=== PATIENT | female | born 1950 | race American Indian/Alaskan Native ===

== ENCOUNTER 2018-03-06 17:31 | Observation (INO) | payer OTHER, MEDICARE ==
--- NOTE | 2018-03-06 17:55 | C.PDOC ---
History Of Present Illness 67 year old female presents to the ED after being sent by her PMD for evaluation of asymptomatic bradycardia noted prior to arrival. Patient went to her PMD's office today for a routine visit when she was found to have a heart rate of 37 bpm. Patient refused ambulance and waited to be brought to the ED by her niece. Patient reports similar episode of bradycardia in the past, and states her heart rate improved after Dr. Magallanes adjusted her medications. Upon ED arrival, patient's heart rate improved to around 50bpm. She denies chest pain, shortness of breath, lightheadedness, and dizziness at this time. PMD: Dr. Purnima Nelson Time Seen by Provider: 03/06/18 17:51 Chief Complaint (Nursing): Shortness Of Breath History Per: Patient History/Exam Limitations: no limitations Onset/Duration Of Symptoms: Hrs Current Symptoms Are (Timing): Better Quality: denies: "Pain" Current Respiratory Medications: See Home Med List Associated Symptoms: denies: Chest Pain Additional History Per: Patient Past Medical History Reviewed: Historical Data, Nursing Documentation, Vital Signs Vital Signs: Last Vital Signs Temp 98.3 F 03/06/18 17:34 Pulse 50 L 03/06/18 18:31 Resp 18 03/06/18 18:31 BP 166/85 H 03/06/18 18:31 Pulse Ox 97 03/06/18 18:05 - Medical History PMH: Asthma, COPD, HTN, Hypercholesterolemia Surgical History: No Surg Hx Family History: States: Unknown Family Hx - Social History Hx Alcohol Use: No Hx Substance Use: No - Immunization History Hx Tetanus Toxoid Vaccination: No Hx Influenza Vaccination: No Hx Pneumococcal Vaccination: No Review Of Systems Cardiovascular: Positive for: Other (asymptomatic bradycardia ). Negative for: Chest Pain Respiratory: Negative for: Shortness of Breath Neurological: Negative for: Dizziness, Other (lightheadedness ) Physical Exam - Physical Exam Appears: Non-toxic, No Acute Distress Skin: Normal Color, Warm, Dry Head: Atraumatic, Normacephalic Eye(s): bilateral: Normal Inspection Oral Mucosa: Moist Neck: Supple Chest: Symmetrical, No Deformity, No Tenderness Cardiovascular: Rhythm Regular, No Murmur Respiratory: Normal Breath Sounds, No Rales, No Rhonchi, No Wheezing Extremity: Normal ROM, Capillary Refill (less than 2 seconds ) Neurological/Psych: Oriented x3, Normal Speech, Normal Cognition ED Course And Treatment - Laboratory Results Result Diagrams: 03/06/18 18:11 03/06/18 18:11 Lab Interpretation: No Acute Changes ECG: Interpreted By Me ECG Rhythm: Sinus Bradycardia, ST/T Changes (inversion I AVL ) ECG Interpretation: Abnormal O2 Sat by Pulse Oximetry: 97 (on RA) Pulse Ox Interpretation: Normal - Radiology CXR: Viewed By Me, Read By Radiologist CXR Interpretation: Yes: No Acute Disease Progress Note: Bloodwork, CXR, EKG ordered and reviewed. Reevaluation Time: 19:20 Reassessment Condition: Unchanged (Currently has diffuse wheezing on lung exam. Duoneb ordered.) - Physician Consult Information Time Consulting Physician Contacted: 19:21 Physician Contacted: Pal Dozier Outcome Of Conversation: Patient to be admitted for bradycardia. Disposition - Disposition Disposition: HOSPITALIZED Disposition Time: 19:22 Condition: STABLE - POA Present On Arrival: None - Clinical Impression Clinical Impression: Bradycardia by electrocardiogram, Bradycardia with 31-40 beats per minute - Scribe Statement The provider has reviewed the documentation as recorded by the Scribe (Stacy Roldan) Provider Attestation: All medical record entries made by the Scribe were at my direction and personally dictated by me. I have reviewed the chart and agree that the record accurately reflects my personal performance of the history, physical exam, medical decision making, and the department course for this patient. I have also personally directed, reviewed, and agree with the discharge instructions and disposition.
[2018-03-06 18:28] LABS: BASO % 0.6 % (0.0-2.0); EOS # 0.2 K/uL (0.0-0.7); EOS % 5.3 % (0.0-4.0); LYMPH # 1.5 K/uL (1.0-4.3); LYMPH % 32.4 % (20.0-40.0); MEAN CELL VOLUME 90.8 fL (81.0-99.0); MEAN CORPUSCULAR HEMOGLOBIN 30.2 pg (27.0-31.0); MEAN CORPUSCULAR HGB CONC 33.3 g/dL (33.0-37.0); MEAN PLATELET VOLUME 8.9 fL (7.2-11.7); MONO # 0.3 K/uL (0.0-0.8); MONO % 6.6 % (0.0-10.0); NEUT # 2.5 K/uL (1.8-7.0); NEUT % 55.1 % (50.0-75.0); NRBC % 0.1 % (0.0-2.0); RBC 4.31 Mil/uL (3.80-5.20); RED CELL DISTRIBUTION WIDTH 16.3 % (11.5-14.5); WHITE BLOOD COUNT 4.6 K/uL (4.8-10.8)
[2018-03-06 18:32] LABS: ALB/GLOB RATIO 1.2 (1.0-2.1); ALBUMIN 3.9 g/dL (3.5-5.0); ALT/SGPT 13 U/L (9-52); AST/SGOT 21 U/L (14-36); BLOOD UREA NITROGEN 18 mg/dL (7-17); CALCIUM 8.6 mg/dl (8.6-10.4); GFR AFRICAN-AMERICAN > 60; GFR NON-AFRICAN AMERICAN > 60
[2018-03-06 19:10] LABS: B-TYPE NATRIURETIC PEPTIDE 194 pg/mL (0-900)
--- NOTE | 2018-03-06 19:15 | RAD ---
PROCEDURE: CHEST RADIOGRAPH, 1 VIEW HISTORY: SOB COMPARISON: Chest radiographs 01/06/2016. FINDINGS: LUNGS: No definite pulmonary disease appreciated bilaterally. PLEURA: No pneumothorax or pleural fluid seen. CARDIOVASCULAR: Cardiomegaly. No pulmonary vascular derangement. OSSEOUS STRUCTURES: No significant abnormalities. VISUALIZED UPPER ABDOMEN: Normal. OTHER FINDINGS: None. IMPRESSION: Cardiomegaly. No pulmonary derangement. No acute pulmonary disease bilaterally.
[2018-03-06] MEDS ORDERED: Albuterol-Ipratrop 3 mg / 0.5 (3 ml) UD IH STA (19:23)
[2018-03-06] MEDS ORDERED: Albuterol-Ipratrop 3 mg / 0.5 (3 ml) UD ONE (19:38)
[2018-03-06 20:43] LABS: SQUAMOUS EPITHIAL 10 /hpf (0-5); URINE BACTERIA OCC (<OCC); URINE BILIRUBIN NEGATIVE (NEGATIVE); URINE BLOOD NEGATIVE (NEGATIVE); URINE CLARITY Hazy (Clear); URINE COLOR Yellow (YELLOW); URINE GLUCOSE (UA) NORMAL (Normal); URINE LEUKOCYTE ESTERASE 1+ Leu/uL (Negative); URINE PROTEIN NEGATIVE (NEGATIVE); URINE UROBILINOGEN NORMAL mg/dL (0.2-1.0)
[2018-03-06] MEDS: Albuterol-Ipratrop 3 mg / 0.5 (3 ml) UD INH SCH (20:48)
[2018-03-06] MEDS ORDERED: Rosuvastatin Calcium 2.5 mg Tab PO SCH (22:00)
[2018-03-06] MEDS: Rosuvastatin Calcium 2.5 mg Tab PO SCH (22:43)
[2018-03-07 01:21] LABS: CK-MB 1.04 ng/mL (0.0-3.38)
--- NOTE | 2018-03-07 02:00 | CP.PCM.HP ---
<Poncho Saravia - Last Filed: 03/07/18 04:32> History of Present Illness - History of Present Illness History of Present Illness: This is a 67 yo female with past medical hx of HTN, COPD, HLD, bradycardia, osteoarthritis, presenting to [facility] ER with chief complaint of "my primary care doctor told me to come here." Pt was going to see her pmd Dr. Nelson at a regularly scheduled visit today. She was seeing Dr. Nelson at [address] Nelson performed an ekg and informed her that her heart rate was in the 30s. She says she felt perfectly fine at this time and denies any symptoms whatsoever. Denied chest pain, palpitations, dizziness, lightheaded, vertigo, syncope. Dr. Nelson said she would call an ambulance for her. The pt refused the ambulance and instead said her niece would come pick her up and transport her to the ER. The pt was then transported to ER by her niece. She still denies any sx currently. She denies chest pain, palpitations, fevers, chills, syncope, vomiting, diarrhea. She says this type of situation has happened before. She has been seeing Dr. Magallanes. She does report shortness of breath when walking up only 1 flight of stairs. She also reports feeling short of breath after traveling only 1 block. She says this has been going on for 1 year. She denies any shortness of breath at rest. PMD: Dr. Nelson- brady saw earlier today Specialists: Cardiology- Sona PMH: HTN, COPD, HLD, bradycardia, osteoarthritis PSH: bilateral cyst removal from breasts, surgery on right wrist Allergies: NKDA FH: mother- heart disease father- stroke Also DM and unknown cancer in family Social hx: Current smoker. Says 1 cigarette every once in a while. For 40 yrs at least. Denies drinking. Denies drug use. Works as a [employer]. Lives alone. Born in . Home meds: tramadol 50 mg po tid, celecoxib 200 mg po daily, asa 81 mg po daily , lasix 20 mg po daily, diovan 320 mg po daily, allopurinol 100 mg po daily, pravastatin 20 mg po daily, Insurance: [employer] medicare Code status: patient is thinking carefully about her wishes Present on Admission - Present on Admission Any Indicators Present on Admission: No History of DVT/PE: No History of Uncontrolled Diabetes: No Urinary Catheter: No Decubitus Ulcer Present: No Review of Systems - Constitutional Constitutional: absent: Chills, Fever - EENT Eyes: absent: Blurred Vision, Change in Vision Nose/Mouth/Throat: absent: Sore Throat, Neck Pain - Cardiovascular Cardiovascular: Dyspnea. absent: Chest Pain, Chest Pain at Rest - Respiratory Respiratory: Dyspnea, Dyspnea on Exertion. absent: Cough - Gastrointestinal Gastrointestinal: absent: Abdominal Pain, Nausea, Vomiting - Genitourinary Genitourinary: absent: Change in Urinary Stream, Difficulty Urinating - Musculoskeletal Musculoskeletal: absent: Neck Pain, Numbness, Tingling - Integumentary Integumentary: absent: Bleeding Lesions, Changing Lesions - Neurological Neurological: absent: Syncope, Weakness - Psychiatric Psychiatric: absent: Hallucinations, Visual Hallucinations - Endocrine Endocrine: absent: Palpitations, Polyuria - Hematologic/Lymphatic Hematologic: absent: Easy Bleeding, Easy Bruising Past Patient History - Infectious Disease Hx of Infectious Diseases: None - Tetanus Immunizations Tetanus Immunization: Unknown - Past Medical History & Family History Past Medical History?: Yes - Past Social History Smoking Status: Light Smoker < 10 Cigarettes Daily Chewing Tobacco Use: No Cigar Use: No Alcohol: None Drugs: Denies Home Situation {Lives}: Alone Domestic Violence: Negative - CARDIAC Hx Hypercholesterolemia: Yes Hx Hypertension: Yes - PULMONARY Hx Asthma: Yes Hx Chronic Obstructive Pulmonary Disease (COPD): Yes - MUSCULOSKELETAL/RHEUMATOLOGICAL Hx Osteoarthritis: Yes - PSYCHIATRIC Hx Substance Use: No - SURGICAL HISTORY Other/Comment: Breast cyst removed ,benign, carpal tunnel sx - ANESTHESIA Hx Anesthesia: No Hx Anesthesia Reactions: No Meds Allergies/Adverse Reactions: Allergies Allergy/AdvReac Type Severity Reaction Status Date / Time No Known Allergies Allergy Unverified 03/06/18 17:35 Physical Exam - Constitutional Appears: Non-toxic, No Acute Distress - Head Exam Head Exam: ATRAUMATIC, NORMAL INSPECTION, NORMOCEPHALIC - Eye Exam Eye Exam: EOMI - ENT Exam ENT Exam: Mucous Membranes Moist - Neck Exam Neck exam: Positive for: Full Rom, Normal Inspection - Respiratory Exam Respiratory Exam: Decreased Breath Sounds. absent: Respiratory Distress - Cardiovascular Exam Cardiovascular Exam: Bradycardia, REGULAR RHYTHM, +S1, +S2 - GI/Abdominal Exam GI & Abdominal Exam: Normal Bowel Sounds, Soft. absent: Tenderness - Extremities Exam Extremities exam: Positive for: full ROM, normal inspection - Back Exam Back exam: NORMAL INSPECTION - Neurological Exam Neurological exam: Alert, CN II-XII Intact, Oriented x3 - Psychiatric Exam Psychiatric exam: Normal Affect, Normal Mood - Skin Skin Exam: Dry, Intact, Normal Color, Warm Results - Vital Signs Recent Vital Signs: Last Vital Signs Temp 97.9 F 03/06/18 23:10 Pulse 44 L 03/07/18 00:59 Resp 20 03/06/18 23:10 BP 199/77 H 03/07/18 00:59 Pulse Ox 98 03/06/18 23:10 - Labs Result Diagrams: 03/06/18 18:11 03/06/18 18:11 Labs: Laboratory Results - last 24 hr 03/06/18 03/06/18 03/06/18 18:11 18:11 20:31 WBC 4.6 L RBC 4.31 Hgb 13.0 Hct 39.1 MCV 90.8 MCH 30.2 MCHC 33.3 RDW 16.3 H Plt Count 202 MPV 8.9 Neut % (Auto) 55.1 Lymph % (Auto) 32.4 [place] % (Auto) 6.6 Eos % (Auto) 5.3 H Baso % (Auto) 0.6 Neut # (Auto) 2.5 Lymph # (Auto) 1.5 [place] # (Auto) 0.3 Eos # (Auto) 0.2 Baso # (Auto) 0.0 Sodium 144 Potassium 4.2 Chloride 103 Carbon Dioxide 28 Anion Gap 16 BUN 18 H Creatinine 0.8 Est GFR ( Amer) > 60 Est GFR (Non-Af Amer) > 60 Random Glucose 131 H Calcium 8.6 Magnesium 1.8 Total Bilirubin 0.6 AST 21 ALT 13 Alkaline Phosphatase 86 Total Creatine Kinase CK-MB (Mass) Troponin I < 0.0120 NT-Pro-B Natriuret Pep 194 Total Protein 7.2 Albumin 3.9 Globulin 3.3 Albumin/Globulin Ratio 1.2 Urine Color Yellow Urine Clarity Hazy Urine pH 6.0 Ur Specific [place] 1.010 Urine Protein Negative Urine Glucose (UA) Normal Urine Ketones Negative Urine Blood Negative Urine Nitrate Negative Urine Bilirubin Negative Urine Urobilinogen Normal Ur Leukocyte Esterase 1+ H Urine WBC (Auto) 9 H Urine RBC (Auto) 2 Ur Squamous Epith Cells 10 H Urine Bacteria Occ H 03/07/18 00:46 WBC RBC Hgb Hct MCV MCH MCHC RDW Plt Count MPV Neut % (Auto) Lymph % (Auto) [place] % (Auto) Eos % (Auto) Baso % (Auto) Neut # (Auto) Lymph # (Auto) [place] # (Auto) Eos # (Auto) Baso # (Auto) Sodium Potassium Chloride Carbon Dioxide Anion Gap BUN Creatinine Est GFR ( Amer) Est GFR (Non-Af Amer) Random Glucose Calcium Magnesium Total Bilirubin AST ALT Alkaline Phosphatase Total Creatine Kinase 74 CK-MB (Mass) 1.04 Troponin I < 0.0120 NT-Pro-B Natriuret Pep Total Protein Albumin Globulin Albumin/Globulin Ratio Urine Color Urine Clarity Urine pH Ur Specific [place] Urine Protein Urine Glucose (UA) Urine Ketones Urine Blood Urine Nitrate Urine Bilirubin Urine Urobilinogen Ur Leukocyte Esterase Urine WBC (Auto) Urine RBC (Auto) Ur Squamous Epith Cells Urine Bacteria Assessment & Plan - Assessment and Plan (Free Text) Assessment: This is a 67 yo female with past medical hx of bradycardia, HTN, COPD, OA presenting with asymptomatic bradycardia 1. Bradycardia -asymptomatic -no indication for atropine at this time -serial troponins -1st 2 sets of troponin negative -serial ekgs -hold NSAIDs as we rule out ACS -lipid panel -TSH and free T4 -asa 81 mg po daily -crestor 2.5 mg po hs -echo ordered -no previous echo on record -initial ekg shows sinus bradycardia with sinus arrhythmia, t wave inversions in I and AVL, no previous ekg to compare -pt did have abnormal myocardial perfusion study in 2015. -CXR shows cardiomegaly. no active pulmonary disease -cardiology consult. recs appreciated. Dr. Magallanes. -BNP within normal limits -consider sleep study as FELISHA is associated with sinus bradycardia 2. hx of HTN -pt was on home valsartan -valsartan not available here -pharmacy recommended losartan 100 mg po daily 3. hx of COPD -duonebs RQ6 [facility] -encourage smoking cessation -make sure pt is up to date on vaccinations including pnemonia and flu vaccine 4. Hx of OA -hold pt's celecoxib as we rule out ACS -continue tramadol 50 mg po tid. 5. hx of gout? -allopurinol 100 mg po daily 6. Cardiomegaly -echo pending. -cardiology consult as above. -lasix 20 mg po daily 7. LE in urine -1 plus LE, also epithelial cells -denies any urinary sx -continue to monitor 8. hx of tobacco abuse -encourage smoking cessation 6. GI/DVT ppx -SCDs -protonix 40 mg IV daily Heart healthy diet. discussed with Dr. Dozier <Pal Dozier - Last Filed: 03/07/18 19:23> Results - Vital Signs Recent Vital Signs: Last Vital Signs Temp 98.2 F 03/07/18 15:00 Pulse 45 L 03/07/18 15:00 Resp 20 03/07/18 15:00 BP 169/73 H 03/07/18 15:00 Pulse Ox 98 03/07/18 15:00 - Labs Result Diagrams: 03/07/18 06:22 03/07/18 06:22 Labs: Laboratory Results - last 24 hr 03/06/18 03/07/18 03/07/18 20:31 00:46 06:22 WBC 4.4 L RBC 4.03 Hgb 12.5 Hct 36.3 MCV 90.0 MCH 30.9 MCHC 34.4 RDW 15.9 H Plt Count 180 MPV 8.9 Neut % (Auto) 49.1 L Lymph % (Auto) 36.9 [place] % (Auto) 7.9 Eos % (Auto) 5.5 H Baso % (Auto) 0.6 Neut # (Auto) 2.1 Lymph # (Auto) 1.6 [place] # (Auto) 0.3 Eos # (Auto) 0.2 Baso # (Auto) 0.0 Sodium Potassium Chloride Carbon Dioxide Anion Gap BUN Creatinine Est GFR ( Amer) Est GFR (Non-Af Amer) Random Glucose Hemoglobin A1c Calcium Total Bilirubin AST ALT Alkaline Phosphatase Total Creatine Kinase 74 CK-MB (Mass) 1.04 Troponin I < 0.0120 Total Protein Albumin Globulin Albumin/Globulin Ratio Triglycerides Cholesterol LDL Cholesterol Direct HDL Cholesterol Free T4 TSH 3rd Generation Urine Color Yellow Urine Clarity Hazy Urine pH 6.0 Ur Specific [place] 1.010 Urine Protein Negative Urine Glucose (UA) Normal Urine Ketones Negative Urine Blood Negative Urine Nitrate Negative Urine Bilirubin Negative Urine Urobilinogen Normal Ur Leukocyte Esterase 1+ H Urine WBC (Auto) 9 H Urine RBC (Auto) 2 Ur Squamous Epith Cells 10 H Urine Bacteria Occ H 03/07/18 03/07/18 03/07/18 06:22 06:22 06:22 WBC RBC Hgb Hct MCV MCH MCHC RDW Plt Count MPV Neut % (Auto) Lymph % (Auto) [place] % (Auto) Eos % (Auto) Baso % (Auto) Neut # (Auto) Lymph # (Auto) [place] # (Auto) Eos # (Auto) Baso # (Auto) Sodium 143 Potassium 4.1 Chloride 106 Carbon Dioxide 30 Anion Gap 11 BUN 16 Creatinine 0.9 Est GFR ( Amer) > 60 Est GFR (Non-Af Amer) > 60 Random Glucose 86 Hemoglobin A1c 5.7 Calcium 8.7 Total Bilirubin 0.5 AST 25 ALT 16 Alkaline Phosphatase 81 Total Creatine Kinase 61 CK-MB (Mass) 1.02 Troponin I < 0.0120 Total Protein 7.3 Albumin 4.0 Globulin 3.4 Albumin/Globulin Ratio 1.2 Triglycerides 70 Cholesterol 186 LDL Cholesterol Direct 98 HDL Cholesterol 51 Free T4 1.25 TSH 3rd Generation 3.11 Urine Color Urine Clarity Urine pH Ur Specific [place] Urine Protein Urine Glucose (UA) Urine Ketones Urine Blood Urine Nitrate Urine Bilirubin Urine Urobilinogen Ur Leukocyte Esterase Urine WBC (Auto) Urine RBC (Auto) Ur Squamous Epith Cells Urine Bacteria Assessment & Plan - Date & Time Date: 03/07/18 (I have seen and examined the patient. I agree with the findings and plan of care as documented by Dr. Saravia. Patient with bradycardia. Asymptomatic. Vitals otherwise within normal limits. Monitor on tele. Also with history of COPD. Currently still smoking. Offered smoking cessation options but declined. Continue home meds. Monitor for acute changes. ) Time: 19:21 Attending/Attestation - Attestation I have personally seen and examined this patient.: Yes I have fully participated in the care of the patient.: Yes I have reviewed all pertinent clinical information: Yes
[2018-03-07] MEDS: Albuterol-Ipratrop 3 mg / 0.5 (3 ml) UD INH SCH ×4 (02:33→20:21)
[2018-03-07 06:31] LABS: BASO % 0.6 % (0.0-2.0); EOS # 0.2 K/uL (0.0-0.7); EOS % 5.5 % (0.0-4.0); HEMOGLOBIN 12.5 g/dL (11.0-16.0); LYMPH # 1.6 K/uL (1.0-4.3); LYMPH % 36.9 % (20.0-40.0); MEAN CORPUSCULAR HEMOGLOBIN 30.9 pg (27.0-31.0); MEAN CORPUSCULAR HGB CONC 34.4 g/dL (33.0-37.0); MEAN PLATELET VOLUME 8.9 fL (7.2-11.7); MONO # 0.3 K/uL (0.0-0.8); MONO % 7.9 % (0.0-10.0); NEUT # 2.1 K/uL (1.8-7.0); NEUT % 49.1 % (50.0-75.0); NRBC % 0.1 % (0.0-2.0); RBC 4.03 Mil/uL (3.80-5.20); RED CELL DISTRIBUTION WIDTH 15.9 % (11.5-14.5); WHITE BLOOD COUNT 4.4 K/uL (4.8-10.8)
[2018-03-07 07:36] LABS: ALB/GLOB RATIO 1.2 (1.0-2.1); ALT/SGPT 16 U/L (9-52); AST/SGOT 25 U/L (14-36); BLOOD UREA NITROGEN 16 mg/dL (7-17); CALCIUM 8.7 mg/dl (8.6-10.4); GFR AFRICAN-AMERICAN > 60; GFR NON-AFRICAN AMERICAN > 60; HDL CHOLESTEROL 51 mg/dL (30-70)
[2018-03-07 07:42] LABS: CK-MB 1.02 ng/mL (0.0-3.38)
[2018-03-07 07:49] LABS: LDL CHOLESTEROL 98 mg/dL (0-129)
[2018-03-07] MEDS: Enoxaparin 40 mg Syringe SC SCH (09:42)
[2018-03-07] MEDS ORDERED: BRIMONIDINE 0.15% OD SCH (10:00)
[2018-03-07] MEDS ORDERED: Home Med 1 UNIT (Umeclidinium Brm/Vilanterol Tr [Anoro Ellipta 62.5-25 Mcg Inh] 1 EACH) IH SCH (10:00)
--- NOTE | 2018-03-07 13:55 | CARD ---
APPROVED REPORT EKG Measurement Heart [id number] <Conclusion> Sinus bradycardia with sinus arrhythmia T wave abnormality, consider lateral ischemia Abnormal ECG
--- NOTE | 2018-03-07 14:57 | CP.PCM.PN ---
Subjective - Date & Time of Evaluation Date of Evaluation: 03/07/18 Time of Evaluation: 07:45 - Subjective Subjective: Progress Note Patient seen and exam. No acute events overnight. Patient states she has no chest pain, shortness of breath. Objective - Vital Signs/Intake and Output Vital Signs (last 24 hours): Temp Pulse Resp BP Pulse Ox 97.9 F 45 L 20 180/90 H 96 03/07/18 08:39 03/07/18 14:36 03/07/18 08:39 03/07/18 09:38 03/07/18 08:39 Intake and Output: 03/07/18 03/07/18 06:59 18:59 Intake Total 10 Balance 10 - Medications Medications: Current Medications Albuterol/Ipratropium (Duoneb 3 Mg/0.5 Mg (3 Ml) Ud) 3 ml INH RQ6 [facility] Last Admin: 03/07/18 13:53 Dose: Not Given Allopurinol (Zyloprim) 100 mg PO DAILY [facility] Last Admin: 03/07/18 09:40 Dose: 100 mg Aspirin (Aspirin Chewable) 81 mg PO DAILY [facility] Last Admin: 03/07/18 09:40 Dose: 81 mg Enoxaparin Sodium (Lovenox) 40 mg SC DAILY [facility] Last Admin: 03/07/18 09:42 Dose: 40 mg Furosemide (Lasix) 20 mg PO DAILY [facility] Last Admin: 03/07/18 09:38 Dose: 20 mg Home Med (Brimonidine 0.15% [Alphagan P 0.15% Opht]) 50 drop OD TID [facility] Home Med (Umeclidinium Brm/Vilanterol Tr [Anoro Ellipta 62.5-25 Mcg Inh]) 1 each IH DAILY [facility] Losartan Potassium (Cozaar) 100 mg PO DAILY [facility] Last Admin: 03/07/18 09:40 Dose: 100 mg Pantoprazole Sodium (Protonix Inj) 40 mg IVP DAILY [facility] Last Admin: 03/07/18 09:43 Dose: 40 mg Rosuvastatin Calcium (Crestor) 2.5 mg PO HS [facility] Last Admin: 03/06/18 22:43 Dose: 2.5 mg Tramadol HCl (Ultram) 50 mg PO TID [facility] Last Admin: 03/07/18 13:54 Dose: 50 mg - Labs Labs: 03/07/18 06:22 03/07/18 06:22 - Constitutional Appears: Non-toxic, No Acute Distress, Chronically Ill - Head Exam Head Exam: ATRAUMATIC, NORMAL INSPECTION, NORMOCEPHALIC - Eye Exam Eye Exam: EOMI, Normal appearance Pupil Exam: NORMAL ACCOMODATION, PERRL - ENT Exam ENT Exam: Mucous Membranes Moist, Normal Exam - Neck Exam Neck Exam: Full ROM, Normal Inspection. absent: Thyromegaly - Respiratory Exam Respiratory Exam: Clear to Ausculation Bilateral, NORMAL BREATHING PATTERN. absent: Accessory Muscle Use - Cardiovascular Exam Cardiovascular Exam: REGULAR RHYTHM, +S1, +S2. absent: Bradycardia, Tachycardia - GI/Abdominal Exam GI & Abdominal Exam: Soft, Normal Bowel Sounds. absent: Tenderness - Extremities Exam Extremities Exam: Full ROM, Normal Capillary Refill, Normal Inspection Additional comments: mild edema of lower extremities - Back Exam Back Exam: Full ROM, NORMAL INSPECTION - Neurological Exam Neurological Exam: Alert, CN II-XII Intact, Normal Gait, Oriented x3 Neuro motor strength exam: Left Upper Extremity: 0, Right Upper Extremity: 0, Left Lower Extremity: 0, Right Lower Extremity: 0 - Psychiatric Exam Psychiatric exam: Normal Affect, Normal Mood - Skin Skin Exam: Normal Color, Warm Assessment and Plan - Assessment and Plan (Free Text) Assessment: 67 yo female with past medical hx of bradycardia, HTN, COPD, OA presenting with asymptomatic bradycardia 1. Bradycardia, asymptomatic no indication for atropine at this time serial troponins ROMIs negative x 3 hold NSAIDs as we rule out ACS Lipid panel TSH and free T4 f/u Echo Patient did have abnormal myocardial perfusion study in 2015. CXR shows cardiomegaly. no active pulmonary disease BNP within normal limits EKG shows sinus bradycardia with sinus arrhythmia, t wave inversions in I and AVL, no previous ekg to compare Consider sleep study as FELISHA is associated with sinus bradycardia Cardiology Consult Dr. Magallanes. Asa 81 mg po daily Crestor 2.5 mg po HS 2. hx of HTN valsartan not available at this hospital pharmacy recommended losartan 100 mg po daily 3. hx ofCOPD duonebs RQ6 [facility] encourage smoking cessation make sure pt is up to date on vaccinations including pneumonia and flu vaccine 4. Hx of OA Hold home medication: celecoxib Continue Tramadol 50 mg po tid 5. hx of gout Allopurinol 100 mg po daily 6. Cardiomegaly F/u echo Cardiology consult: Dr. Magallanes Lasix 20 mg po daily 7. hx of tobacco abuse -encourage smoking cessation 8. GI/DVT ppx -SCDs -protonix 40 mg IV daily Heart healthy diet. discussed with Dr. Olga Noguera, DO PGY1
--- NOTE | 2018-03-07 17:59 | CP.PCM.CON ---
History of Present Illness - History of Present Illness History of Present Illness: The pt is a 67 year old woman, with HTN and a history f sinus bradycardia. The patient denies chest pain, dyspnea,syncope,. Dr Nelson took her pulse, it was in the 30's, and the patient was sent to the hospital. TSH is normal. BP has been elevated. Echo reveals normal LV EF. No known CAD. Review of Systems - Review of Systems All systems: reviewed and no additional remarkable complaints except (as above.) Past Patient History - Infectious Disease Hx of Infectious Diseases: None - Tetanus Immunizations Tetanus Immunization: Unknown - Past Medical History & Family History Past Medical History?: Yes - Past Social History Smoking Status: Light Smoker < 10 Cigarettes Daily Chewing Tobacco Use: No Cigar Use: No Alcohol: None Drugs: Denies Home Situation {Lives}: Alone Domestic Violence: Negative - CARDIAC Hx Hypercholesterolemia: Yes Hx Hypertension: Yes - PULMONARY Hx Chronic Obstructive Pulmonary Disease (COPD): Yes - MUSCULOSKELETAL/RHEUMATOLOGICAL Hx Osteoarthritis: Yes - PSYCHIATRIC Hx Substance Use: No - SURGICAL HISTORY Other/Comment: Breast cyst removed ,benign, carpal tunnel sx - ANESTHESIA Hx Anesthesia: No Hx Anesthesia Reactions: No Meds Allergies/Adverse Reactions: Allergies Allergy/AdvReac Type Severity Reaction Status Date / Time No Known Allergies Allergy Unverified 03/06/18 17:35 - Medications Medications: Current Medications Albuterol/Ipratropium (Duoneb 3 Mg/0.5 Mg (3 Ml) Ud) 3 ml INH RQ6 [facility] Last Admin: 03/07/18 13:53 Dose: Not Given Allopurinol (Zyloprim) 100 mg PO DAILY [facility] Last Admin: 03/07/18 09:40 Dose: 100 mg Aspirin (Aspirin Chewable) 81 mg PO DAILY [facility] Last Admin: 03/07/18 09:40 Dose: 81 mg Enoxaparin Sodium (Lovenox) 40 mg SC DAILY [facility] Last Admin: 03/07/18 09:42 Dose: 40 mg Furosemide (Lasix) 20 mg PO DAILY [facility] Last Admin: 03/07/18 09:38 Dose: 20 mg Home Med (Brimonidine 0.15% [Alphagan P 0.15% Opht]) 50 drop OD TID [facility] Home Med (Umeclidinium Brm/Vilanterol Tr [Anoro Ellipta 62.5-25 Mcg Inh]) 1 each IH DAILY [facility] Losartan Potassium (Cozaar) 100 mg PO DAILY [facility] Last Admin: 03/07/18 09:40 Dose: 100 mg Pantoprazole Sodium (Protonix Inj) 40 mg IVP DAILY [facility] Last Admin: 03/07/18 09:43 Dose: 40 mg Rosuvastatin Calcium (Crestor) 2.5 mg PO HS [facility] Last Admin: 03/06/18 22:43 Dose: 2.5 mg Tramadol HCl (Ultram) 50 mg PO TID [facility] Last Admin: 03/07/18 13:54 Dose: 50 mg Physical Exam - Constitutional Appears: Well - Head Exam Head Exam: ATRAUMATIC - Eye Exam Eye Exam: EOMI - ENT Exam ENT Exam: Mucous Membranes Moist - Neck Exam Neck exam: Positive for: Full Rom - Respiratory Exam Respiratory Exam: Clear to Auscultation Bilateral - Cardiovascular Exam Cardiovascular Exam: REGULAR RHYTHM - GI/Abdominal Exam GI & Abdominal Exam: Normal Bowel Sounds - Exam External exam: NORMAL EXTERNAL EXAM - Extremities Exam Extremities exam: Positive for: normal inspection - Neurological Exam Neurological exam: Alert, Normal Gait, Oriented x3, Reflexes Normal - Psychiatric Exam Psychiatric exam: Normal Affect - Skin Skin Exam: Normal Color Results - Vital Signs Recent Vital Signs: Last Vital Signs Temp 98.2 F 03/07/18 15:00 Pulse 45 L 03/07/18 15:00 Resp 20 03/07/18 15:00 BP 169/73 H 03/07/18 15:00 Pulse Ox 98 03/07/18 15:00 - Labs Result Diagrams: 03/07/18 06:22 03/07/18 06:22 Labs: Laboratory Results - last 24 hr 03/06/18 03/06/18 03/06/18 18:11 18:11 20:31 WBC 4.6 L RBC 4.31 Hgb 13.0 Hct 39.1 MCV 90.8 MCH 30.2 MCHC 33.3 RDW 16.3 H Plt Count 202 MPV 8.9 Neut % (Auto) 55.1 Lymph % (Auto) 32.4 [place] % (Auto) 6.6 Eos % (Auto) 5.3 H Baso % (Auto) 0.6 Neut # (Auto) 2.5 Lymph # (Auto) 1.5 [place] # (Auto) 0.3 Eos # (Auto) 0.2 Baso # (Auto) 0.0 Sodium 144 Potassium 4.2 Chloride 103 Carbon Dioxide 28 Anion Gap 16 BUN 18 H Creatinine 0.8 Est GFR ( Amer) > 60 Est GFR (Non-Af Amer) > 60 Random Glucose 131 H Hemoglobin A1c Calcium 8.6 Magnesium 1.8 Total Bilirubin 0.6 AST 21 ALT 13 Alkaline Phosphatase 86 Total Creatine Kinase CK-MB (Mass) Troponin I < 0.0120 NT-Pro-B Natriuret Pep 194 Total Protein 7.2 Albumin 3.9 Globulin 3.3 Albumin/Globulin Ratio 1.2 Triglycerides Cholesterol LDL Cholesterol Direct HDL Cholesterol Free T4 TSH 3rd Generation Urine Color Yellow Urine Clarity Hazy Urine pH 6.0 Ur Specific [place] 1.010 Urine Protein Negative Urine Glucose (UA) Normal Urine Ketones Negative Urine Blood Negative Urine Nitrate Negative Urine Bilirubin Negative Urine Urobilinogen Normal Ur Leukocyte Esterase 1+ H Urine WBC (Auto) 9 H Urine RBC (Auto) 2 Ur Squamous Epith Cells 10 H Urine Bacteria Occ H 03/07/18 03/07/18 03/07/18 00:46 06:22 06:22 WBC 4.4 L RBC 4.03 Hgb 12.5 Hct 36.3 MCV 90.0 MCH 30.9 MCHC 34.4 RDW 15.9 H Plt Count 180 MPV 8.9 Neut % (Auto) 49.1 L Lymph % (Auto) 36.9 [place] % (Auto) 7.9 Eos % (Auto) 5.5 H Baso % (Auto) 0.6 Neut # (Auto) 2.1 Lymph # (Auto) 1.6 [place] # (Auto) 0.3 Eos # (Auto) 0.2 Baso # (Auto) 0.0 Sodium 143 Potassium 4.1 Chloride 106 Carbon Dioxide 30 Anion Gap 11 BUN 16 Creatinine 0.9 Est GFR ( Amer) > 60 Est GFR (Non-Af Amer) > 60 Random Glucose 86 Hemoglobin A1c Calcium 8.7 Magnesium Total Bilirubin 0.5 AST 25 ALT 16 Alkaline Phosphatase 81 Total Creatine Kinase 74 61 CK-MB (Mass) 1.04 1.02 Troponin I < 0.0120 < 0.0120 NT-Pro-B Natriuret Pep Total Protein 7.3 Albumin 4.0 Globulin 3.4 Albumin/Globulin Ratio 1.2 Triglycerides 70 Cholesterol 186 LDL Cholesterol Direct 98 HDL Cholesterol 51 Free T4 TSH 3rd Generation 3.11 Urine Color Urine Clarity Urine pH Ur Specific [place] Urine Protein Urine Glucose (UA) Urine Ketones Urine Blood Urine Nitrate Urine Bilirubin Urine Urobilinogen Ur Leukocyte Esterase Urine WBC (Auto) Urine RBC (Auto) Ur Squamous Epith Cells Urine Bacteria 03/07/18 03/07/18 06:22 06:22 WBC RBC Hgb Hct MCV MCH MCHC RDW Plt Count MPV Neut % (Auto) Lymph % (Auto) [place] % (Auto) Eos % (Auto) Baso % (Auto) Neut # (Auto) Lymph # (Auto) [place] # (Auto) Eos # (Auto) Baso # (Auto) Sodium Potassium Chloride Carbon Dioxide Anion Gap BUN Creatinine Est GFR ( Amer) Est GFR (Non-Af Amer) Random Glucose Hemoglobin A1c 5.7 Calcium Magnesium Total Bilirubin AST ALT Alkaline Phosphatase Total Creatine Kinase CK-MB (Mass) Troponin I NT-Pro-B Natriuret Pep Total Protein Albumin Globulin Albumin/Globulin Ratio Triglycerides Cholesterol LDL Cholesterol Direct HDL Cholesterol Free T4 1.25 TSH 3rd Generation Urine Color Urine Clarity Urine pH Ur Specific [place] Urine Protein Urine Glucose (UA) Urine Ketones Urine Blood Urine Nitrate Urine Bilirubin Urine Urobilinogen Ur Leukocyte Esterase Urine WBC (Auto) Urine RBC (Auto) Ur Squamous Epith Cells Urine Bacteria - EKG Data EKG Interpreted by: Myself EKG shows normal: Sinus rhythm (s bradyc, no heart block) Assessment & Plan - Assessment and Plan (Free Text) Assessment: 1. The patient has a normal LV EF, normal TSH, and asymptomatic sinus bradycardia without heart block or pauses. Pt does not take any negative chronotropic anti-hypertensives. 2. For HTN, observe on meds and if still high, either add norvasc or substitute chlorthalidone for hctz. 3. Pt may be discharged home, and come to the office for a holter monitor.
[2018-03-07] MEDS: Rosuvastatin Calcium 2.5 mg Tab PO SCH (21:55)
--- NOTE | 2018-03-07 22:08 | CARD ---
APPROVED REPORT EXAM: Two-dimensional and M-mode echocardiogram with Doppler and color Doppler. Other Information Quality : GoodRhythm : Bradycardia INDICATION COPD RISK FACTORS Hypertension Hyperlipidemia 2D DIMENSIONS IVSd1.1 (0.7-1.1cm)LVDd5.6 (3.9-5.9cm) PWd1.0 (0.7-1.1cm)LVDs3.2 (2.5-4.0cm) FS (%) 43.1 %LVEF (%)73.6 (>50%) M-Mode DIMENSIONS Left Atrium (MM)3.85 (2.5-4.0cm)Aortic Root3.05 (2.2-3.7cm) Aortic Cusp Exc.2.30 (1.5-2.0cm) Mitral Valve MV E Dulwwera58.1cm/sMV A Pipjnrib38.9cm/sE/A ratio1.2 TDI E/Lateral E'0.0E/Medial E'0.0 Tricuspid Valve TR Peak Rorpgwmt100pg/sTR Peak Gr.[id number] LEFT VENTRICLE The left ventricle is normal size. There is normal left ventricular wall thickness. Left ventricle systolic function is normal. The Ejection Fraction is 65-70%. There is normal LV segmental wall motion. The left ventricular diastolic function is normal. There is no ventricular septal defect visualized. There is no left ventricular aneurysm. RIGHT VENTRICLE The right ventricle is normal size. The right ventricular systolic function is normal. ATRIA The left atrium is mildly dilated. The right atrium size is normal. AORTIC VALVE The aortic valve is mildly sclerotic. The aortic valve is tri-cuspid. No aortic regurgitation is present. There is no aortic valvular stenosis. MITRAL VALVE The mitral valve is normal in structure. There is no evidence of mitral valve prolapse. Mitral regurgitation is mild.ERO 0.5 TRICUSPID VALVE The tricuspid valve is normal in structure. There is trace tricuspid regurgitation. Right ventricular systolic pressure is estimated at less than 30 mmHg. There is no pulmonary hypertension. PULMONIC VALVE The pulmonary valve is normal in structure. There is trace pulmonic valvular regurgitation. GREAT VESSELS The aortic root is normal in size. The ascending aorta is normal in size. The IVC was not visualized. PERICARDIAL EFFUSION There is no pericardial effusion. <Conclusion> Left ventricle systolic function is normal. The Ejection Fraction is 65-70%. The left ventricular diastolic function is normal. Mitral regurgitation is mild.ERO 0.5
[2018-03-08] MEDS: Albuterol-Ipratrop 3 mg / 0.5 (3 ml) UD INH SCH ×2 (01:54→08:33)
[2018-03-08 07:37] LABS: BASO % 0.9 % (0.0-2.0); EOS # 0.2 K/uL (0.0-0.7); EOS % 5.1 % (0.0-4.0); HEMOGLOBIN 12.4 g/dL (11.0-16.0); LYMPH # 1.3 K/uL (1.0-4.3); LYMPH % 33.4 % (20.0-40.0); MEAN CELL VOLUME 90.5 fL (81.0-99.0); MEAN CORPUSCULAR HEMOGLOBIN 30.5 pg (27.0-31.0); MEAN CORPUSCULAR HGB CONC 33.7 g/dL (33.0-37.0); MONO # 0.3 K/uL (0.0-0.8); MONO % 7.5 % (0.0-10.0); NEUT # 2.1 K/uL (1.8-7.0); NEUT % 53.1 % (50.0-75.0); NRBC % 0.2 % (0.0-2.0); RBC 4.09 Mil/uL (3.80-5.20); RED CELL DISTRIBUTION WIDTH 15.8 % (11.5-14.5)
[2018-03-08 08:04] LABS: ALB/GLOB RATIO 1.1 (1.0-2.1); ALBUMIN 3.4 g/dL (3.5-5.0); ALT/SGPT 26 U/L (9-52); AST/SGOT 19 U/L (14-36); BLOOD UREA NITROGEN 18 mg/dL (7-17); CALCIUM 8.7 mg/dl (8.6-10.4); GFR AFRICAN-AMERICAN > 60; GFR NON-AFRICAN AMERICAN > 60
[2018-03-08 08:36] VITALS: PULSE 50
[2018-03-08 08:39] VITALS: RESP 18; TEMP 98.2; O2SAT 97
[2018-03-08] MEDS: Enoxaparin 40 mg Syringe SC SCH (09:18)
[2018-03-08 11:12] VITALS: BP 187/85
--- NOTE | 2018-03-08 16:58 | CP.PCM.DIS ---
Provider - Provider Date of Admission: 03/06/18 19:22 Attending physician: Brittani Espinoza MD Consults: Dr. Magallanes Time Spent in preparation of Discharge (in minutes): 35 Diagnosis - Discharge Diagnosis (1) Bradycardia with 31-40 beats per minute Status: Resolved Hospital Course - Lab Results Lab Results: Most Recent Lab Values WBC 4.0 K/uL (4.8-10.8) L 03/08/18 07:11 RBC 4.09 Mil/uL (3.80-5.20) 03/08/18 07:11 Hgb 12.4 g/dL (11.0-16.0) 03/08/18 07:11 Hct 37.0 % (34.0-47.0) 03/08/18 07:11 MCV 90.5 fL (81.0-99.0) 03/08/18 07:11 MCH 30.5 pg (27.0-31.0) 03/08/18 07:11 MCHC 33.7 g/dL (33.0-37.0) 03/08/18 07:11 RDW 15.8 % (11.5-14.5) H 03/08/18 07:11 Plt Count 170 K/uL (130-400) 03/08/18 07:11 MPV 9.0 fL (7.2-11.7) 03/08/18 07:11 Neut % (Auto) 53.1 % (50.0-75.0) 03/08/18 07:11 Lymph % (Auto) 33.4 % (20.0-40.0) 03/08/18 07:11 [place] % (Auto) 7.5 % (0.0-10.0) 03/08/18 07:11 Eos % (Auto) 5.1 % (0.0-4.0) H 03/08/18 07:11 Baso % (Auto) 0.9 % (0.0-2.0) 03/08/18 07:11 Neut # (Auto) 2.1 K/uL (1.8-7.0) 03/08/18 07:11 Lymph # (Auto) 1.3 K/uL (1.0-4.3) 03/08/18 07:11 [place] # (Auto) 0.3 K/uL (0.0-0.8) 03/08/18 07:11 Eos # (Auto) 0.2 K/uL (0.0-0.7) 03/08/18 07:11 Baso # (Auto) 0.0 K/uL (0.0-0.2) 03/08/18 07:11 Sodium 142 mmol/L (132-148) 03/08/18 07:11 Potassium 4.1 mmol/L (3.6-5.2) 03/08/18 07:11 Chloride 105 mmol/L (98-107) 03/08/18 07:11 Carbon Dioxide 28 mmol/L (22-30) 03/08/18 07:11 Anion Gap 14 (10-20) 03/08/18 07:11 BUN 18 mg/dL (7-17) H 03/08/18 07:11 Creatinine 0.8 mg/dL (0.7-1.2) 03/08/18 07:11 Est GFR ( Amer) > 60 03/08/18 07:11 Est GFR (Non-Af Amer) > 60 03/08/18 07:11 Random Glucose 96 mg/dL (65-105) 03/08/18 07:11 Hemoglobin A1c 5.7 % (4.2-6.5) 03/07/18 06:22 Calcium 8.7 mg/dl (8.6-10.4) 03/08/18 07:11 Phosphorus 3.9 mg/dL (2.5-4.5) 03/08/18 07:11 Magnesium 1.9 mg/dL (1.6-2.3) 03/08/18 07:11 Total Bilirubin 0.5 mg/dL (0.2-1.3) 03/08/18 07:11 AST 19 U/L (14-36) 03/08/18 07:11 ALT 26 U/L (9-52) 03/08/18 07:11 Alkaline Phosphatase 82 U/L (38-126) 03/08/18 07:11 Total Creatine Kinase 61 U/L (30-135) 03/07/18 06:22 CK-MB (Mass) 1.02 ng/mL (0.0-3.38) 03/07/18 06:22 Troponin I < 0.0120 ng/mL (0.00-0.120) 03/07/18 06:22 NT-Pro-B Natriuret Pep 194 pg/mL (0-900) 03/06/18 18:11 Total Protein 6.5 g/dL (6.3-8.3) 03/08/18 07:11 Albumin 3.4 g/dL (3.5-5.0) L 03/08/18 07:11 Globulin 3.1 gm/dL (2.2-3.9) 03/08/18 07:11 Albumin/Globulin Ratio 1.1 (1.0-2.1) 03/08/18 07:11 Triglycerides 70 mg/dL (0-149) 03/07/18 06:22 Cholesterol 186 mg/dL (0-199) 03/07/18 06:22 LDL Cholesterol Direct 98 mg/dL (0-129) 03/07/18 06:22 HDL Cholesterol 51 mg/dL (30-70) 03/07/18 06:22 Free T4 1.25 ng/dL (0.78-2.19) 03/07/18 06:22 TSH 3rd Generation 3.11 mIU/L (0.46-4.68) 03/07/18 06:22 Urine Color Yellow (YELLOW) 03/06/18 20: Urine Clarity Hazy (Clear) 03/06/18 20: Urine pH 6.0 (5.0-8.0) 03/06/18 20:31 Ur Specific [place] 1.010 (1.003-1.030) 03/06/18 20:31 Urine Protein Negative mg/dL (NEGATIVE) 03/06/18 20: Urine Glucose (UA) Normal mg/dL (Normal) 03/06/18 20:31 Urine Ketones Negative mg/dL (NEGATIVE) 03/06/18 20:31 Urine Blood Negative (NEGATIVE) 03/06/18 20: Urine Nitrate Negative (NEGATIVE) 03/06/18: Urine Bilirubin Negative (NEGATIVE) 03/06/18 20:31 Urine Urobilinogen Normal mg/dL (0.2-1.0) 03/06/18 20:31 Ur Leukocyte Esterase 1+ [place]/uL (Negative) H 03/06/18 20: Urine WBC (Auto) 9 /hpf (0-5) H 03/06/18 20:31 Urine RBC (Auto) 2 /hpf (0-3) 03/06/18 20:31 Ur Squamous Epith Cells 10 /hpf (0-5) H 03/06/18 20:31 Urine Bacteria Occ (<OCC) H 03/06/18 20:31 - Hospital Course Hospital Course: This is a 67 yo female with past medical hx of HTN, COPD, HLD, bradycardia, osteoarthritis, presenting to [facility] ER with chief complaint of "my primary care doctor told me to come here." Pt was going to see her pmd Dr. Nelson at a regularly scheduled visit today. She was seeing Dr. Nelson at [address] Nelson performed an ekg and informed her that her heart rate was in the 30s. She says she felt perfectly fine at this time and denies any symptoms whatsoever. Denied chest pain, palpitations, dizziness, lightheaded, vertigo, syncope. Dr. Nelson said she would call an ambulance for her. The pt refused the ambulance and instead said her niece would come pick her up and transport her to the ER. The pt was then transported to ER by her niece. She still denies any sx currently. She denies chest pain, palpitations, fevers, chills, syncope, vomiting, diarrhea. She says this type of situation has happened before. She has been seeing Dr. Magallanes. She does report shortness of breath when walking up only 1 flight of stairs. She also reports feeling short of breath after traveling only 1 block. She says this has been going on for 1 year. She denies any shortness of breath at rest. Patient had echocardiogram showing normal LV EF. Patient was medically stable throughout stay. Patient discharged with instructions to discontinue timolol eye drops as that is likely the cause of bradycardia. Patient is currently asymptomatic at the time. Patient was explained to follow up with technical marketing engineer. Follow up with [employer] consultant to recheck eye pressures and to continue home medications with addition of Norvasc 5mg POQD - Date & Time of H&P Date of H&P: 03/08/18 Time of H&P: 16:56 Discharge Exam - Head Exam Head Exam: ATRAUMATIC, NORMAL INSPECTION, NORMOCEPHALIC - Eye Exam Eye Exam: EOMI, Normal appearance Pupil Exam: NORMAL ACCOMODATION, PERRL - ENT Exam ENT Exam: Mucous Membranes Moist, Normal Exam - Neck Exam Neck exam: Full Rom - Respiratory Exam Respiratory Exam: Chest Wall Tenderness, NORMAL BREATHING PATTERN. absent: Accessory Muscle Use - Cardiovascular Exam Cardiovascular Exam: REGULAR RHYTHM, +S1, +S2. absent: Bradycardia, Tachycardia - GI/Abdominal Exam GI & Abdominal Exam: Normal Bowel Sounds, Soft. absent: Unremarkable - Extremities Exam Extremities exam: full ROM, normal inspection - Back Exam Back exam: FULL ROM, NORMAL INSPECTION. absent: paraspinal tenderness - Neurological Exam Neurological exam: Alert, CN II-XII Intact, Oriented x3 - Psychiatric Exam Psychiatric exam: Normal Affect, Normal Mood - Skin Skin Exam: Dry, Intact, Normal Color, Warm Discharge Plan - Discharge Medications Prescriptions: amLODIPine [Norvasc] 5 mg PO DAILY #30 tab Dorzolamide 2% [Trusopt] 1 drop BOTHEYES TID #1 bottle - Follow Up Plan Condition: STABLE Disposition: HOME/ ROUTINE Instructions: Heart Healthy Diet, DASH Diet, High Blood Pressure (DC), Bradycardia (DC), Amlodipine, Dorzolamide Additional Instructions: PAtient to follow up with opthalmologist today or tomorrow 03/08, 03/09 for further instructions on non-beta reshma eye drops for glaucoma Patient to take norvasc as directed and to continue home medications except for beta reshma eye drops. (timolol) Patient to follow up with Dr. Simon in 1 week Patient to follow up with primary care in 1 week
--- NOTE | 2018-03-09 03:14 | CARD ---
APPROVED REPORT EKG Measurement Heart [id number] <Conclusion> Marked sinus bradycardia Nonspecific T wave abnormality Abnormal ECG
== END 2018-03-08 14:04 | disposition home or self-care (01) ==
LOC: C.ER 17:31 → C.9E 19:22 → C.6T 19:22
PROVIDERS: ADMIT Internal Medicine; ATTEND Internal Medicine
DX: R00.1 Bradycardia, unspecified (principal); E78.00 Pure hypercholesterolemia, unspecified; F17.200 Nicotine dependence, unspecified, uncomplicated; I11.9 Hypertensive heart disease without heart failure; J44.9 Chronic obstructive pulmonary disease, unspecified; Z79.82 Long term (current) use of aspirin; Z79.899 Other long term (current) drug therapy; Z82.3 Family history of stroke; Z82.49 Family history of ischemic heart disease and other diseases of the circulatory system; Z83.3 Family history of diabetes mellitus; Z23 Encounter for immunization
CPT/HCPCS: 36415; 71045; 71046; 80053; 80061; 81001; 83036; 83735; 83880; 84100; 84439; 84443; 84484; 85025; 93005; 93306; 94640; 97116; 97162; 99285; C9113; G0378; G8978; G8979; J1650